=== PATIENT | female | born 1945 | race Caucasian/White ===

== ENCOUNTER → 2020-07-26 | Day surgery (SDC) | payer MEDICARE, OTHER ==
[~2020-07-26] VITALS: Ht 160 cm; Wt 79.5 kg
[~2020-07-26] MED LIST: 8 HOUR650 MG PO; ASPIRIN EC81 MG PO; BENTYL10 MG PO; COLACE100 MG PO; FLONASE ALLER15.8 ML INH; HEMORRHOIDAL S1 EAC2 PR; LORATADINE10 MG PO; MOBIC7.5 MG PO; OMEPRAZOLE 20MG20 MG PO; PROBIOTIC ACID1 EACH PO; PROPRANOLOL HCL60 M1 PO; SIMVASTATIN10 MG PO; SULFAMETHOXAZO1 EACH PO; VITAMIN D-40010 MCG PO
[2020-07-26 08:10] LABS: HCT 44.2 % (37.0-47.0); HGB 14.7 g/dl (12.5-16.0); MCH 29.4 pg (25.0-31.0); MCHC 33.3 g/dL (32.0-36.0); MCV 88.4 fL (78.0-100.0); MPV 10.5 fL (6.0-9.5); RDW 12.1 % (11.5-14.0); WBC 6.8 K/uL (4.0-10.5)
[2020-07-26 08:34] LABS: ALBUMIN 4.4 g/dL (3.4-5.0); BILIRUBIN - TOTAL 0.8 mg/dL (0.2-1.0); BUN/CREAT RATIO (CALC) 18.2 RATIO; CREATININE 0.88 mg/dL (0.51-0.95); POTASSIUM 4.1 mmol/L (3.5-5.1); TOTAL PROTEIN 7.4 g/dL (6.4-8.2)
== END | disposition home or self-care (01) ==
LOC: FAS 07:24
PROVIDERS: Surgery
DX: Z12.11 Encounter for screening for malignant neoplasm of colon (principal); K57.30 Diverticulosis of large intestine without perforation or abscess without bleeding; K21.9 Gastro-esophageal reflux disease without esophagitis; F41.9 Anxiety disorder, unspecified; E78.00 Pure hypercholesterolemia, unspecified; M19.90 Unspecified osteoarthritis, unspecified site; H26.9 Unspecified cataract; Z79.82 Long term (current) use of aspirin; Z79.899 Other long term (current) drug therapy
CPT/HCPCS: 36415; 80053; J2250; J2704; J7120